=== PATIENT | female | born 1985 | race Caucasian/White ===

== ENCOUNTER → 2020-09-21 | Outpatient (CLI) | payer BC, OTHER | LOC: HEART 5 08:36 | DX: J84.10 Pulmonary fibrosis, unspecified (principal); R06.89 Other abnormalities of breathing | CPT/HCPCS: 71046; 94010 ==

== ENCOUNTER → 2020-09-23 | Outpatient (CLI) | payer BC, OTHER | LOC: LAB 08:47 | DX: D89.89 Other specified disorders involving the immune mechanism, not elsewhere classified (principal); R76.0 Raised antibody titer; M25.50 Pain in unspecified joint | CPT/HCPCS: 36415 ==